=== PATIENT | female | born 1990 | race American Indian/Alaskan Native ===

== ENCOUNTER 2016-06-24 17:21 | Emergency (ER) | payer MEDICAID ==
[2016-06-24 18:02] VITALS: BP 119/88
== END 2016-06-24 19:57 | disposition left against medical advice (07) ==
LOC: ED 17:21
DX: J02.9 Acute pharyngitis, unspecified (principal); J35.1 Hypertrophy of tonsils; Z53.21 Procedure and treatment not carried out due to patient leaving prior to being seen by health care provider

== ENCOUNTER 2017-08-09 14:20 | Emergency (ER) | payer MEDICAID ==
[2017-08-09 14:33] VITALS: BP 120/78
[2017-08-09] MEDS ORDERED: DECADRON IM ONE (16:20)
[2017-08-09] MEDS ORDERED: BICILLIN L-A IM ONE (16:20)
[2017-08-09] MEDS ORDERED: TORADOL IM ONE (16:20)
--- NOTE | 2017-08-09 16:35 | Emergency Department Report ---
ED ENT HPI - General Chief complaint: Sore Throat Stated complaint: SORE THROAT, HEADACHE Time Seen by Provider: 08/09/17 16:11 Source: patient Mode of arrival: Ambulatory Limitations: No Limitations - Related Data Home Medications Medication Instructions Recorded Confirmed Last Taken Amoxicillin [Trimox] 500 mg PO Q8H 02/12/13 02/12/13 Unknown Iron,Carb/Vit C/Vit B12/Folic 02/12/13 02/12/13 Unknown [Iron 100 Plus Tablet] Methylergonovine [Methergine] 0.2 mg PO ONCE 02/12/13 02/12/13 Unknown metroNIDAZOLE [Flagyl] 500 mg PO Q8HR 02/12/13 02/12/13 Unknown Previous Rx's Medication Instructions Recorded Last Taken Type Cyclobenzaprine [Flexeril] 10 mg PO TID PRN #12 tablet 02/12/13 Unknown Rx Ibuprofen [Motrin] 800 mg PO TID PRN #14 tablet 02/12/13 Unknown Rx HYDROcodone/ACETAMINOPHEN 15 ml PO Q6HR PRN #150 solution 08/09/17 Unknown Rx [Hydrocodon-Acetamin 7.5-325/15] Allergies Allergy/AdvReac Type Severity Reaction Status Date / Time ethinyl estradiol Allergy Angioedema Verified 06/24/16 17:56 [From [facility] (28)] norgestimate Allergy Angioedema Verified 06/24/16 17:56 [From [facility] (28)] ED Dental HPI - General Chief complaint: Sore Throat Stated complaint: SORE THROAT, HEADACHE Time Seen by Provider: 08/09/17 16:11 Source: patient Mode of arrival: Ambulatory Limitations: No Limitations - Related Data Home Medications Medication Instructions Recorded Confirmed Last Taken Amoxicillin [Trimox] 500 mg PO Q8H 02/12/13 02/12/13 Unknown Iron,Carb/Vit C/Vit B12/Folic 02/12/13 02/12/13 Unknown [Iron 100 Plus Tablet] Methylergonovine [Methergine] 0.2 mg PO ONCE 02/12/13 02/12/13 Unknown metroNIDAZOLE [Flagyl] 500 mg PO Q8HR 02/12/13 02/12/13 Unknown Previous Rx's Medication Instructions Recorded Last Taken Type Cyclobenzaprine [Flexeril] 10 mg PO TID PRN #12 tablet 02/12/13 Unknown Rx Ibuprofen [Motrin] 800 mg PO TID PRN #14 tablet 02/12/13 Unknown Rx HYDROcodone/ACETAMINOPHEN 15 ml PO Q6HR PRN #150 solution 08/09/17 Unknown Rx [Hydrocodon-Acetamin 7.5-325/15] Allergies Allergy/AdvReac Type Severity Reaction Status Date / Time ethinyl estradiol Allergy Angioedema Verified 06/24/16 17:56 [From [facility] (28)] norgestimate Allergy Angioedema Verified 06/24/16 17:56 [From [facility] (28)] ED Review of Systems ROS: Stated complaint: SORE THROAT, HEADACHE Other details as noted in HPI ED Past Medical Hx - Past Medical History Previous Medical History?: Yes Additional medical history: Stomach Ulcers, 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 - Surgical History Past Surgical History?: No - Social History Smoking Status: Never Smoker Substance Use Type: Alcohol, Prescribed - Medications Home Medications: Home Medications Medication Instructions Recorded Confirmed Last Taken Type Amoxicillin [Trimox] 500 mg PO Q8H 02/12/13 02/12/13 Unknown History Cyclobenzaprine [Flexeril] 10 mg PO TID PRN #12 tablet 02/12/13 Unknown Rx Ibuprofen [Motrin] 800 mg PO TID PRN #14 tablet 02/12/13 Unknown Rx Iron,Carb/Vit C/Vit B12/Folic 02/12/13 02/12/13 Unknown History [Iron 100 Plus Tablet] Methylergonovine [Methergine] 0.2 mg PO ONCE 02/12/13 02/12/13 Unknown History metroNIDAZOLE [Flagyl] 500 mg PO Q8HR 02/12/13 02/12/13 Unknown History HYDROcodone/ACETAMINOPHEN 15 ml PO Q6HR PRN #150 solution 08/09/17 Unknown Rx [Hydrocodon-Acetamin 7.5-325/15] ED Physical Exam - General Limitations: No Limitations General appearance: alert, in no apparent distress - Head Head exam: Present: atraumatic, normocephalic - Eye Eye exam: Present: normal appearance - ENT ENT exam: Present: mucous membranes moist, other (anterior cervical lymph nodes present). Absent: normal orophraynx (pharyngeal erythema with tonsillar swelling) - Neck Neck exam: Present: normal inspection - Respiratory Respiratory exam: Present: normal lung sounds bilaterally. Absent: respiratory distress - Cardiovascular Cardiovascular Exam: Present: regular rate, normal rhythm. Absent: systolic murmur, diastolic murmur, rubs, gallop - GI/Abdominal GI/Abdominal exam: Present: soft, normal bowel sounds - Extremities Exam Extremities exam: Present: normal inspection - Back Exam Back exam: Present: normal inspection - Neurological Exam Neurological exam: Present: alert, oriented X3 - Psychiatric Psychiatric exam: Present: normal affect, normal mood - Skin Skin exam: Present: warm, dry, intact, normal color. Absent: rash ED Course Vital Signs 08/09/17 14:30 Temperature 98 F Pulse Rate 86 Respiratory 20 Rate Blood Pressure 120/78 O2 Sat by Pulse 100 Oximetry ED Medical Decision Making - Medical Decision Making Patient has had anterior cervical lymph node swelling erythema to the tonsils and swelling and possible subjective fevers at home patient will be empirically treated with Bicillin and will be discharged home with pain relief Critical care attestation.: If time is entered above; I have spent that time in minutes in the direct care of this critically ill patient, excluding procedure time. ED Disposition Clinical Impression: Pharyngitis Qualifiers: Pharyngitis/tonsillitis etiology: unspecified etiology Qualified Code(s): J02.9 - Acute pharyngitis, unspecified Disposition: DC-01 TO HOME OR SELFCARE Is pt being admited?: No Does the pt Need Aspirin: No Condition: Stable Instructions: Pharyngitis (ED) Prescriptions: HYDROcodone/ACETAMINOPHEN [Hydrocodon-Acetamin 7.5-325/15] 15 ml PO Q6HR PRN # 150 solution PRN Reason: Pain Referrals: PRIMARY CARE, [Primary Care Provider] - 3-5 Days
== END 2017-08-09 16:40 | disposition home or self-care (01) ==
LOC: ED 14:20
DX: J02.9 Acute pharyngitis, unspecified (principal); Z88.8 Allergy status to other drugs, medicaments and biological substances
CPT/HCPCS: 96372; 99282; J0561; J1100; J1885

== ENCOUNTER 2018-05-10 12:48 | Emergency (ER) | payer MEDICAID, OTHER ==
--- NOTE | 2018-05-10 13:23 | Emergency Department Report ---
Blank Doc - Documentation Documentation: 27 yo female presents mucus prod cough LMP 04/16/18, unsure about preg Exam: alert and oriented Lungs clear Plan UPT CXR MSE complete
--- NOTE | 2018-05-10 16:44 | XRay Report ---
FINAL REPORT EXAM: XR CHEST ROUTINE 2V HISTORY: cp/cough TECHNIQUE: Two view chest PA and lateral PRIORS: None. FINDINGS: Cardiac and mediastinal contours are unremarkable. No focal pulmonary infiltrate is identified. No pleural fluid collection seen. Pulmonary vasculature is unremarkable. IMPRESSION: Scoliosis of the thoracic spine convex right noted No acute cardiopulmonary findings
--- NOTE | 2018-05-10 16:52 | Emergency Department Report ---
ED General Adult HPI - General Chief complaint: Upper Respiratory Infection Stated complaint: CHEST PAIN/COUGH Time Seen by Provider: 05/10/18 15:37 Source: patient Mode of arrival: Ambulatory Limitations: No Limitations - History of Present Illness Initial comments: Patient presents to emergency department to complaint of a cough 3 weeks that has been productive in nature. There have been multiple sick contacts in the home. -: Gradual Consistency: constant Improves with: none Worsens with: none Associated Symptoms: denies other symptoms Treatments Prior to Arrival: none - Related Data Home Medications Medication Instructions Recorded Confirmed Last Taken Amoxicillin [Trimox] 500 mg PO Q8H 02/12/13 02/12/13 Unknown Iron,Carb/Vit C/Vit B12/Folic 02/12/13 02/12/13 Unknown [Iron 100 Plus Tablet] Methylergonovine [Methergine] 0.2 mg PO ONCE 02/12/13 02/12/13 Unknown metroNIDAZOLE [Flagyl] 500 mg PO Q8HR 02/12/13 02/12/13 Unknown Previous Rx's Medication Instructions Recorded Last Taken Type Cyclobenzaprine [Flexeril] 10 mg PO TID PRN #12 tablet 02/12/13 Unknown Rx Ibuprofen [Motrin] 800 mg PO TID PRN #14 tablet 02/12/13 Unknown Rx HYDROcodone/ACETAMINOPHEN 15 ml PO Q6HR PRN #150 solution 08/09/17 Unknown Rx [Hydrocodon-Acetamin 7.5-325/15] ALBUTEROL Inhaler (OR & NICU) 2 puff IH Q4HR PRN #1 inhalation 05/10/18 Unknown Rx [ProAir HFA Inhaler] Azithromycin [Zithromax Z-PHIL] 250 mg PO DAILY #6 tablet 05/10/18 Unknown Rx Benzonatate [Tessalon Perles] 100 mg PO Q8HR PRN #20 capsule 05/10/18 Unknown Rx guaiFENesin/CODEINE [Robitussin AC] 5 ml PO Q12HR PRN #180 oral.liqd 05/10/18 Unknown Rx predniSONE [Deltasone] 20 mg PO DAILY #15 tablet 05/10/18 Unknown Rx traMADol [Ultram] 50 mg PO Q6HR PRN #24 tablet 05/10/18 Unknown Rx Allergies Allergy/AdvReac Type Severity Reaction Status Date / Time ethinyl estradiol Allergy Angioedema Verified 05/10/18 13:20 [From [facility] (28)] norgestimate Allergy Angioedema Verified 05/10/18 13:20 [From [facility] (28)] ED Review of Systems ROS: Stated complaint: CHEST PAIN/COUGH Other details as noted in HPI Comment: All other systems reviewed and negative Constitutional: denies: chills, fever Eyes: denies: eye pain, eye discharge, vision change ENT: denies: ear pain, throat pain Respiratory: cough. denies: shortness of breath, wheezing Cardiovascular: denies: chest pain, palpitations Endocrine: no symptoms reported Gastrointestinal: denies: abdominal pain, nausea, diarrhea Genitourinary: denies: urgency, dysuria, discharge Musculoskeletal: denies: back pain, joint swelling, arthralgia Skin: denies: rash, lesions Neurological: denies: headache, weakness, paresthesias Psychiatric: denies: anxiety, depression Hematological/Lymphatic: denies: easy bleeding, easy bruising ED Past Medical Hx - Past Medical History Previous Medical History?: Yes Additional medical history: Stomach Ulcers, 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 - Surgical History Past Surgical History?: Yes Additional Surgical History: tonsilectomy - Social History Smoking Status: Never Smoker - Medications Home Medications: Home Medications Medication Instructions Recorded Confirmed Last Taken Type Amoxicillin [Trimox] 500 mg PO Q8H 02/12/13 02/12/13 Unknown History Cyclobenzaprine [Flexeril] 10 mg PO TID PRN #12 tablet 02/12/13 Unknown Rx Ibuprofen [Motrin] 800 mg PO TID PRN #14 tablet 02/12/13 Unknown Rx Iron,Carb/Vit C/Vit B12/Folic 02/12/13 02/12/13 Unknown History [Iron 100 Plus Tablet] Methylergonovine [Methergine] 0.2 mg PO ONCE 02/12/13 02/12/13 Unknown History metroNIDAZOLE [Flagyl] 500 mg PO Q8HR 02/12/13 02/12/13 Unknown History HYDROcodone/ACETAMINOPHEN 15 ml PO Q6HR PRN #150 solution 08/09/17 Unknown Rx [Hydrocodon-Acetamin 7.5-325/15] ALBUTEROL Inhaler (OR & NICU) 2 puff IH Q4HR PRN #1 inhalation 05/10/18 Unknown Rx [ProAir HFA Inhaler] Azithromycin [Zithromax Z-PHIL] 250 mg PO DAILY #6 tablet 05/10/18 Unknown Rx Benzonatate [Tessalon Perles] 100 mg PO Q8HR PRN #20 capsule 05/10/18 Unknown Rx guaiFENesin/CODEINE [Robitussin AC] 5 ml PO Q12HR PRN #180 oral.liqd 05/10/18 Unknown Rx predniSONE [Deltasone] 20 mg PO DAILY #15 tablet 05/10/18 Unknown Rx traMADol [Ultram] 50 mg PO Q6HR PRN #24 tablet 05/10/18 Unknown Rx ED Physical Exam - General Limitations: No Limitations General appearance: alert, in no apparent distress - Head Head exam: Present: atraumatic, normocephalic - Eye Eye exam: Present: normal appearance, PERRL, EOMI - ENT ENT exam: Present: mucous membranes moist - Neck Neck exam: Present: normal inspection - Respiratory Respiratory exam: Present: normal lung sounds bilaterally, rales. Absent: respiratory distress, wheezes - Cardiovascular Cardiovascular Exam: Present: regular rate, normal rhythm. Absent: systolic murmur, diastolic murmur, rubs, gallop - GI/Abdominal GI/Abdominal exam: Present: soft, normal bowel sounds. Absent: distended, tenderness - Extremities Exam Extremities exam: Present: normal inspection - Back Exam Back exam: Present: normal inspection - Neurological Exam Neurological exam: Present: alert, oriented X3, CN II-XII intact. Absent: motor sensory deficit - Psychiatric Psychiatric exam: Present: normal affect, normal mood - Skin Skin exam: Present: warm, dry, intact, normal color. Absent: rash ED Course Vital Signs 05/10/18 13:18 Temperature 98.1 F Pulse Rate 86 Respiratory 16 Rate Blood Pressure 137/99 O2 Sat by Pulse 98 Oximetry ED Medical Decision Making - Radiology Data Radiology results: report reviewed - Medical Decision Making Discussed plan of care with patient Critical care attestation.: If time is entered above; I have spent that time in minutes in the direct care of this critically ill patient, excluding procedure time. ED Disposition Clinical Impression: Bronchitis Disposition: DC-01 TO HOME OR SELFCARE Is pt being admited?: No Does the pt Need Aspirin: No Condition: Stable Instructions: Acute Bronchitis (ED) Prescriptions: ALBUTEROL Inhaler (OR & NICU) [ProAir HFA Inhaler] 2 puff IH Q4HR PRN #1 inhalation PRN Reason: Shortness Of Breath Azithromycin [Zithromax Z-PHIL] 250 mg PO DAILY #6 tablet Benzonatate [Tessalon Perles] 100 mg PO Q8HR PRN #20 capsule PRN Reason: Cough guaiFENesin/CODEINE [Robitussin AC] 5 ml PO Q12HR PRN #180 oral.liqd PRN Reason: Cough predniSONE [Deltasone] 20 mg PO DAILY #15 tablet traMADol [Ultram] 50 mg PO Q6HR PRN #24 tablet PRN Reason: Pain Referrals: ANA LUISA JIANG MD [Primary Care Provider] - 3-5 Days [facility] [Provider Group] - 3-5 Days [facility] [Provider Group] - 3-5 Days Forms: Work/School Release Form(ED) Time of Disposition: 16:51
[2018-05-10 17:08] VITALS: BP 136/93
== END 2018-05-10 17:21 | disposition home or self-care (01) ==
LOC: ED 12:48
DX: J40 Bronchitis, not specified as acute or chronic (principal); Z90.89 Acquired absence of other organs; Z88.8 Allergy status to other drugs, medicaments and biological substances
CPT/HCPCS: 36415; 71046; 84703; 93005; 93010; 99283

== ENCOUNTER 2018-08-27 | Emergency (ER) | payer MEDICAID ==
[2018-08-27 00:09] VITALS: BP 154/97
[2018-08-27] MEDS ORDERED: ASPIRIN PO ONE (00:10)
[2018-08-27 00:36] LABS: Basophils % (Auto) 0.7 % (0.0-1.8); Eosinophils # (Auto) 0.1 K/mm3 (0.0-0.4); Eosinophils % (Auto) 1.4 % (0.0-4.3); Hematocrit 32.5 % (30.3-42.9); Lymphocytes # (Auto) 1.5 K/mm3 (1.2-5.4); Lymphocytes % (Auto) 21.8 % (13.4-35.0); Mean Corpuscular HGB Conc 34 % (30-34); Mean Corpuscular Volume 81 fl (79-97); Monocytes # (Auto) 0.4 K/mm3 (0.0-0.8); Monocytes % (Auto) 5.2 % (0.0-7.3); Platelet Count 279 K/mm3 (140-440); Red Blood Count 4.02 M/mm3 (3.65-5.03); Red Cell Distribution Width 16.2 % (13.2-15.2)
[2018-08-27 00:55] LABS: BUN/Creatinine Ratio 15; Blood Urea Nitrogen 9 mg/dL (7-17); Calcium 9.6 mg/dL (8.4-10.2); Hemolysis Index 2
== END 2018-08-27 01:50 | disposition left against medical advice (07) ==
LOC: ED
DX: R42 Dizziness and giddiness (principal); Z53.21 Procedure and treatment not carried out due to patient leaving prior to being seen by health care provider
CPT/HCPCS: 36415; 80048; 84484; 84703; 85025; 93005; 93010

== ENCOUNTER 2018-11-14 17:48 | Emergency (ER) | payer MEDICAID ==
--- NOTE | 2018-11-14 18:23 | Emergency Department Report ---
Blank Doc - Documentation Documentation: This is a 28-year-old female that presents with pelvic pain. This initial assessment/diagnostic orders/clinical plan/treatment(s) is/are subject to change based on patient's health status, clinical progression and re- assessment by fellow clinical providers in the ED. Further treatment and workup at subsequent clinical providers discretion. Patient/guardians urged not to elope from the ED as their condition may be serious if not clinically assessed and managed. Initial orders include: 1- Patient sent to [facility] for further evaluation and treatment3 2- UA
[2018-11-14 19:20] LABS: HCG Qualitative,Urine Negative (Negative)
[2018-11-14 19:35] LABS: Bacteria,Urine 1+ /HPF (Negative); Bilirubin,Urine NEG (Negative); Blood,Urine NEG (Negative); Color,Urine Yellow (Yellow); Mucus,Urine 2+ /HPF; Protein,Urine <15 mg/dL mg/dL (Negative); Urobilinogen,Urine < 2.0 mg/dL (<2.0)
--- NOTE | 2018-11-14 23:19 | Emergency Department Report ---
ED Abdominal Pain HPI - General Chief Complaint: Abdominal Pain Stated Complaint: LT FOOT/ABD PAIN Time Seen by Provider: 11/14/18 18:21 Source: patient Mode of arrival: Ambulatory Limitations: No Limitations - History of Present Illness Initial Comments: Mrs. Clifford is a 28-year-old female who presents with lower bilateral abdominal pain. Denies dysuria. Denies vaginal discharge. Mild abdominal pain. Denies fever. Denies vomiting. Mother was diagnosed uterine fibroids. No previous history of ovarian cyst. Had normal Pap smear last month. In September she was diagnosed with left foot fracture that appears to the hospital. Referred to ankle and employee placement specialist. She desires medication for foot pain due to fracture. She is able to ambulate with mild discomfort. MD Complaint: abdominal pain -: Gradual, days(s) (1) Location: LLQ, RLQ Severity: mild Quality: aching Consistency: constant Improves With: nothing Worsens With: movement Associated Symptoms: denies other symptoms - Related Data Home Medications Medication Instructions Recorded Confirmed Last Taken Amoxicillin [Trimox] 500 mg PO Q8H 02/12/13 02/12/13 Unknown Iron,Carb/Vit C/Vit B12/Folic 02/12/13 02/12/13 Unknown [Iron 100 Plus Tablet] Methylergonovine [Methergine] 0.2 mg PO ONCE 02/12/13 02/12/13 Unknown metroNIDAZOLE [Flagyl] 500 mg PO Q8HR 02/12/13 02/12/13 Unknown Previous Rx's Medication Instructions Recorded Last Taken Type Cyclobenzaprine [Flexeril] 10 mg PO TID PRN #12 tablet 02/12/13 Unknown Rx Ibuprofen [Motrin] 800 mg PO TID PRN #14 tablet 02/12/13 Unknown Rx HYDROcodone/ACETAMINOPHEN 15 ml PO Q6HR PRN #150 solution 08/09/17 Unknown Rx [Hydrocodon-Acetamin 7.5-325/15] ALBUTEROL Inhaler (OR & NICU) 2 puff IH Q4HR PRN #1 inhalation 05/10/18 Unknown Rx [ProAir HFA Inhaler] Azithromycin [Zithromax Z-PHIL] 250 mg PO DAILY #6 tablet 05/10/18 Unknown Rx Benzonatate [Tessalon Perles] 100 mg PO Q8HR PRN #20 capsule 05/10/18 Unknown Rx guaiFENesin/CODEINE [Robitussin AC] 5 ml PO Q12HR PRN #180 oral.liqd 05/10/18 Unknown Rx predniSONE [Deltasone] 20 mg PO DAILY #15 tablet 05/10/18 Unknown Rx traMADol [Ultram] 50 mg PO Q6HR PRN #24 tablet 05/10/18 Unknown Rx HYDROcodone/APAP 5-325 [[place] 1 each PO Q6HR PRN #10 tablet 11/14/18 Unknown Rx 5/325] Ibuprofen [Motrin 800 MG tab] 800 mg PO Q8HR PRN #10 tablet 11/14/18 Unknown Rx Allergies Allergy/AdvReac Type Severity Reaction Status Date / Time ethinyl estradiol Allergy Angioedema Verified 05/10/18 13:20 [From [facility] (28)] norgestimate Allergy Angioedema Verified 05/10/18 13:20 [From [facility] (28)] ED Review of Systems ROS: Stated complaint: LT FOOT/ABD PAIN Other details as noted in HPI Comment: All other systems reviewed and negative Constitutional: denies: fever, malaise Respiratory: denies: cough Gastrointestinal: abdominal pain. denies: nausea, vomiting, diarrhea ED Past Medical Hx - Past Medical History Previous Medical History?: Yes Hx Hypertension: Yes Additional medical history: Stomach Ulcers, 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 - Surgical History Past Surgical History?: Yes Additional Surgical History: tonsilectomy - Social History Smoking Status: Never Smoker Substance Use Type: Alcohol - Medications Home Medications: Home Medications Medication Instructions Recorded Confirmed Last Taken Type Amoxicillin [Trimox] 500 mg PO Q8H 02/12/13 02/12/13 Unknown History Cyclobenzaprine [Flexeril] 10 mg PO TID PRN #12 tablet 02/12/13 Unknown Rx Ibuprofen [Motrin] 800 mg PO TID PRN #14 tablet 02/12/13 Unknown Rx Iron,Carb/Vit C/Vit B12/Folic 02/12/13 02/12/13 Unknown History [Iron 100 Plus Tablet] Methylergonovine [Methergine] 0.2 mg PO ONCE 02/12/13 02/12/13 Unknown History metroNIDAZOLE [Flagyl] 500 mg PO Q8HR 02/12/13 02/12/13 Unknown History HYDROcodone/ACETAMINOPHEN 15 ml PO Q6HR PRN #150 solution 08/09/17 Unknown Rx [Hydrocodon-Acetamin 7.5-325/15] ALBUTEROL Inhaler (OR & NICU) 2 puff IH Q4HR PRN #1 inhalation 05/10/18 Unknown Rx [ProAir HFA Inhaler] Azithromycin [Zithromax Z-PHIL] 250 mg PO DAILY #6 tablet 05/10/18 Unknown Rx Benzonatate [Tessalon Perles] 100 mg PO Q8HR PRN #20 capsule 05/10/18 Unknown Rx guaiFENesin/CODEINE [Robitussin AC] 5 ml PO Q12HR PRN #180 oral.liqd 05/10/18 Unknown Rx predniSONE [Deltasone] 20 mg PO DAILY #15 tablet 05/10/18 Unknown Rx traMADol [Ultram] 50 mg PO Q6HR PRN #24 tablet 05/10/18 Unknown Rx HYDROcodone/APAP 5-325 [[place] 1 each PO Q6HR PRN #10 tablet 11/14/18 Unknown Rx 5/325] Ibuprofen [Motrin 800 MG tab] 800 mg PO Q8HR PRN #10 tablet 11/14/18 Unknown Rx ED Physical Exam - General Limitations: No Limitations General appearance: alert, in no apparent distress - Head Head exam: Present: atraumatic, normocephalic - Eye Eye exam: Present: normal appearance - ENT ENT exam: Present: mucous membranes moist - Neck Neck exam: Present: normal inspection, full ROM - Respiratory Respiratory exam: Present: normal lung sounds bilaterally. Absent: respiratory distress, wheezes, rales, rhonchi - Cardiovascular Cardiovascular Exam: Present: regular rate, normal rhythm, normal heart sounds. Absent: systolic murmur, diastolic murmur, rubs, gallop - GI/Abdominal GI/Abdominal exam: Present: soft, normal bowel sounds. Absent: distended, tenderness, guarding, rebound - Extremities Exam Extremities exam: Present: normal inspection, other (left foot without deformity positive pedal pulse) - Neurological Exam Neurological exam: Present: alert, oriented X3 - Psychiatric Psychiatric exam: Present: normal affect, normal mood - Skin Skin exam: Present: warm, dry, intact, normal color. Absent: rash ED Course Vital Signs 11/14/18 18:22 Temperature 98.4 F Pulse Rate 78 Respiratory 18 Rate Blood Pressure 120/81 O2 Sat by Pulse 99 Oximetry ED Medical Decision Making - Lab Data Laboratory Results - last 24 hr 08/12/19 18:43 Urine Color Yellow Urine Turbidity Slightly-cloudy Urine pH 6.0 Ur Specific [place] 1.026 Urine Protein <15 mg/dl Urine Glucose (UA) Neg Urine Ketones Neg Urine Blood Neg Urine Nitrite Neg Ur Reducing Substances Not Reportable Urine Bilirubin Neg Urine Ictotest Not Reportable Urine Urobilinogen < 2.0 Ur Leukocyte Esterase Neg Urine WBC (Auto) 2.0 Urine RBC (Auto) 2.0 U Epithel Cells (Auto) 23.0 H Urine Bacteria (Auto) 1+ Urine Mucus 2+ Urine HCG, Qual Negative - Medical Decision Making 1. Abdominal pain without signs of peritonitis. Do not suspect appendicitis. Suspect ovarian torsion. Urine test is negative. Differential diagnosis includes irritable bowel syndrome, uterine fibroids, ovarian cysts. No indication of PID from medical history. Referred to personal [employer] 2. Left foot injury: Prescribed [place] ibuprofen referred to ankle and employee placement specialist on-call. Urinalysis contaminated I do not suspect urinary tract infection. Critical care attestation.: If time is entered above; I have spent that time in minutes in the direct care of this critically ill patient, excluding procedure time. ED Disposition Clinical Impression: Abdominal pain, Injury of left foot Disposition: DC-01 TO HOME OR SELFCARE Is pt being admited?: No Does the pt Need Aspirin: No Condition: Stable Instructions: Abdominal Pain (ED) Prescriptions: Ibuprofen [Motrin 800 MG tab] 800 mg PO Q8HR PRN #10 tablet PRN Reason: Pain , Severe (7-10) HYDROcodone/APAP 5-325 [[place] 5/325] 1 each PO Q6HR PRN #10 tablet PRN Reason: Pain Referrals: DOREEN SALES DPM [Staff Physician] - 3-5 Days Forms: Work/School Release Form(ED)
[2018-11-14 23:21] VITALS: BP 115/65
== END 2018-11-14 23:33 | disposition home or self-care (01) ==
LOC: ED 17:48
DX: S92.902A Unspecified fracture of left foot, initial encounter for closed fracture (principal); R10.31 Right lower quadrant pain; R10.32 Left lower quadrant pain; I10 Essential (primary) hypertension; Z90.89 Acquired absence of other organs; Z88.8 Allergy status to other drugs, medicaments and biological substances; Z79.899 Other long term (current) drug therapy; W22.8XXA Striking against or struck by other objects, initial encounter; Y93.89 Activity, other specified; Y92.89 Other specified places as the place of occurrence of the external cause; Y99.8 Other external cause status
CPT/HCPCS: 81001; 81025; 99283

== ENCOUNTER 2020-06-08 06:19 | Emergency (ER) | payer MEDICAID ==
[2020-06-08 07:32] LABS: Bacteria,Urine 1+ /HPF (Negative); Bilirubin,Urine NEG (Negative); Blood,Urine NEG (Negative); Color,Urine Yellow (Yellow); Protein,Urine <15 mg/dL mg/dL (Negative); Urobilinogen,Urine < 2.0 mg/dL (<2.0)
[2020-06-08 07:39] LABS: Basophils % (Auto) 0.4 % (0.0-1.8); Eosinophils # (Auto) 0.2 K/mm3 (0.0-0.4); Eosinophils % (Auto) 2.1 % (0.0-4.3); Hematocrit 33.1 % (30.3-42.9); Hemoglobin 10.9 gm/dl (10.1-14.3); Lymphocytes # (Auto) 1.7 K/mm3 (1.2-5.4); Lymphocytes % (Auto) 23.2 % (13.4-35.0); Mean Corpuscular HGB Conc 33 % (30-34); Mean Corpuscular Volume 82 fl (79-97); Monocytes # (Auto) 0.4 K/mm3 (0.0-0.8); Monocytes % (Auto) 5.1 % (0.0-7.3); Platelet Count 325 K/mm3 (140-440); Red Blood Count 4.05 M/mm3 (3.65-5.03); Red Cell Distribution Width 16.8 % (13.2-15.2)
[2020-06-08 07:41] LABS: Alanine Aminotransferase 11 units/L (7-56); Albumin 4.2 g/dL (3.9-5); Blood Urea Nitrogen 12 mg/dL (7-17); Calcium 9.5 mg/dL (8.4-10.2); Hemolysis Index 1
[2020-06-08 07:42] LABS: BUN/Creatinine Ratio 20
[2020-06-08 09:29] VITALS: BP 142/96
--- NOTE | 2020-06-08 09:32 | Emergency Department Report ---
ED N/V/D HPI - General Chief complaint: Abdominal Pain Stated complaint: VOMITTING Time Seen by Provider: 06/08/20 09:29 Source: patient Mode of arrival: Ambulatory Limitations: No Limitations - History of Present Illness Initial comments: 29 yr old female with pmhx of anemia, and HTN presents to ED with c/o vomiting and abd pain. Patient states her symptoms started earlier this week. She states she has also been having very loose stool. She states her daughter was sick recently with similar symptoms. She denies any fever, chills, UTI symptoms, abnl vag symptoms, hematemesis, hematochezia or melena. She states her last MC was 05/28/20. MD complaint: nausea, vomiting, diarrhea, abdominal pain -: Gradual, week(s) (1) - Related Data Home Medications Medication Instructions Recorded Confirmed Last Taken Iron,Carb/Vit C/Vit B12/Folic 02/12/13 02/12/13 Unknown [Iron 100 Plus Tablet] Methylergonovine [Methergine] 0.2 mg PO ONCE 02/12/13 02/12/13 Unknown Previous Rx's Medication Instructions Recorded Last Taken Type Dicyclomine [Bentyl] 10 mg PO TID PRN #30 capsule 06/08/20 Unknown Rx Ondansetron [Zofran Odt] 4 mg PO Q8HR PRN #15 tab.rapdis 06/08/20 Unknown Rx Allergies Allergy/AdvReac Type Severity Reaction Status Date / Time ethinyl estradiol Allergy Angioedema Verified 05/10/18 13:20 [From Sprintec (28)] norgestimate Allergy Angioedema Verified 05/10/18 13:20 [From Sprintec (28)] ED Review of Systems ROS: Stated complaint: VOMITTING Other details as noted in HPI Comment: All other systems reviewed and negative Constitutional: denies: chills, fever Respiratory: denies: cough, shortness of breath, wheezing Cardiovascular: denies: chest pain, palpitations Gastrointestinal: abdominal pain, nausea, vomiting, diarrhea Genitourinary: denies: urgency, dysuria, discharge Musculoskeletal: denies: back pain, joint swelling, arthralgia Skin: denies: rash, lesions Neurological: denies: headache, weakness, paresthesias Psychiatric: denies: anxiety, depression ED Past Medical Hx - Past Medical History Previous Medical History?: Yes Hx Hypertension: Yes Additional medical history: Stomach Ulcers, 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 - Surgical History Past Surgical History?: Yes Additional Surgical History: tonsilectomy - Social History Smoking Status: Never Smoker Substance Use Type: None - Medications Home Medications: Home Medications Medication Instructions Recorded Confirmed Last Taken Type Iron,Carb/Vit C/Vit B12/Folic 02/12/13 02/12/13 Unknown History [Iron 100 Plus Tablet] Methylergonovine [Methergine] 0.2 mg PO ONCE 02/12/13 02/12/13 Unknown History Dicyclomine [Bentyl] 10 mg PO TID PRN #30 capsule 06/08/20 Unknown Rx Ondansetron [Zofran Odt] 4 mg PO Q8HR PRN #15 tab.rapdis 06/08/20 Unknown Rx ED Physical Exam - General Limitations: No Limitations General appearance: alert, in no apparent distress - Head Head exam: Present: atraumatic, normocephalic, normal inspection - Eye Eye exam: Present: normal appearance - Neck Neck exam: Present: normal inspection, full ROM - Respiratory Respiratory exam: Absent: respiratory distress - Cardiovascular Cardiovascular Exam: Present: regular rate - GI/Abdominal GI/Abdominal exam: Present: soft. Absent: distended, tenderness, guarding, rebound - Back Exam Back exam: Present: normal inspection - Neurological Exam Neurological exam: Present: alert, oriented X3, CN II-XII intact, normal gait - Psychiatric Psychiatric exam: Present: normal affect, normal mood - Skin Skin exam: Present: intact ED Course Vital Signs 06/08/20 06/08/20 06:45 09:29 Temperature 98.4 F Pulse Rate 80 84 Respiratory 17 20 Rate Blood Pressure 141/100 Blood Pressure 142/96 [Right] O2 Sat by Pulse 100 100 Oximetry ED Medical Decision Making - Lab Data Result diagrams: 06/08/20 07:08 06/08/20 07:08 - Medical Decision Making Patient arrived to ED about 1hr prior to onset of my shift at 7:00. Her chart was placed in back to be seen. Once a room was available the nursing staff did try to find her to put her in the room but patient was no where to be found. Eventually patient came back to ED. 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 Patient labs reviewed by me. Work-up today unremarkable. She has a soft nontender abdomen. States that she has not had any episodes of vomiting since she arrived in the ER. She has been observed eating and drinking in the ER. Repeat vital signs stable. She is not toxic, or ill-appearing and is not in any acute distress. Suspect her symptoms may related to a stomach virus since her daughter recently had similar symptoms. No indication for any further work-up or imaging at this time. Discussed lab results as well as suspected diagnosis with patient. Discussed treatment plan with patient. She expressed under standing of instructions and agree with plan. Patient was stable at time of discharge. Critical care attestation.: If time is entered above; I have spent that time in minutes in the direct care of this critically ill patient, excluding procedure time. ED Disposition Clinical Impression: Gastroenteritis, Abdominal pain Disposition: - TO HOME OR SELFCARE Is pt being admited?: No Does the pt Need Aspirin: No Condition: Stable Instructions: Viral Gastroenteritis, Adult, [id number], Abdominal Pain, Adult, [id number], Abdominal Pain (ED) Additional Instructions: Take the zofran and bentyl as prescribed. I recommend doing bland diet for the next 12hrs. Continue to drink fluids. Return to ED if symptoms changes or worsens. Follow up with PCP. Prescriptions: Dicyclomine [Bentyl] 10 mg PO TID PRN #30 capsule PRN Reason: Abdominal Cramps Ondansetron [Zofran Odt] 4 mg PO Q8HR PRN #15 tab.rapdis PRN Reason: Vomiting Referrals: RASHAAD KNOTT MD [Primary Care Provider] - 3-5 Days Forms: Work/School Release Form(ED) Time of Disposition: 09:34
== END 2020-06-08 09:39 | disposition home or self-care (01) ==
LOC: ED 06:19
DX: K52.9 Noninfective gastroenteritis and colitis, unspecified (principal); R10.9 Unspecified abdominal pain; I10 Essential (primary) hypertension; Z90.89 Acquired absence of other organs; Z79.899 Other long term (current) drug therapy; Z88.8 Allergy status to other drugs, medicaments and biological substances
CPT/HCPCS: 36415; 80053; 81001; 83690; 84703; 85025

== ENCOUNTER 2020-08-18 12:50 | Emergency (ER) | payer MEDICAID ==
[2020-08-18 13:32] VITALS: BP 113/73
[2020-08-18 14:54] LABS: Hematocrit 33.4 % (30.3-42.9); Hemoglobin 10.9 gm/dl (10.1-14.3); Mean Corpuscular HGB Conc 33 % (30-34); Mean Corpuscular Volume 82 fl (79-97); Red Blood Count 4.07 M/mm3 (3.65-5.03); Red Cell Distribution Width 16.2 % (13.2-15.2)
[2020-08-18 15:01] LABS: Bilirubin,Urine NEG (Negative); Blood,Urine NEG (Negative); Color,Urine Yellow (Yellow); Mucus,Urine FEW /HPF; Protein,Urine <15 mg/dL mg/dL (Negative); Urobilinogen,Urine < 2.0 mg/dL (<2.0)
[2020-08-18 15:02] LABS: Platelet Count 297 K/mm3 (140-440)
[2020-08-18 15:07] LABS: Alanine Aminotransferase 15 units/L (7-56); Albumin 4.3 g/dL (3.9-5); Blood Urea Nitrogen 8 mg/dL (7-17); Calcium 9.5 mg/dL (8.4-10.2); Hemolysis Index 52
[2020-08-18 15:09] LABS: BUN/Creatinine Ratio 16
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
[2020-08-18 18:08] LABS: Total Cells Counted 100
[2020-08-18 18:09] LABS: RBC Morphology Normal
== END 2020-08-18 18:05 | disposition home or self-care (01) ==
LOC: ED 12:50
DX: O9A.211 Injury, poisoning and certain other consequences of external causes complicating pregnancy, first trimester (principal); M54.2 Cervicalgia; M54.5 Low back pain; R10.30 Lower abdominal pain, unspecified; I10 Essential (primary) hypertension; Z3A.08 8 weeks gestation of pregnancy; Z90.89 Acquired absence of other organs; Z79.899 Other long term (current) drug therapy; Z88.8 Allergy status to other drugs, medicaments and biological substances; V49.49XA Driver injured in collision with other motor vehicles in traffic accident, initial encounter; Y93.89 Activity, other specified; Y92.410 Unspecified street and highway as the place of occurrence of the external cause; Y99.8 Other external cause status
CPT/HCPCS: 36415; 76801; 80053; 81001; 84702; 85007; 85025; 86900; 86901; 87086

== ENCOUNTER 2021-02-06 12:06 | Emergency (ER) | payer MEDICAID ==
--- NOTE | 2021-02-06 14:15 | Emergency Department Report ---
ED Psych HPI - General Chief Complaint: Medical Clearance Stated Complaint: COMING FROM PSYCHIATRIST Source: family Mode of arrival: Ambulatory - History of Present Illness Initial Comments: Chief complaint: Sent from psychiatrist office for mental health assessment HPI: This is a 30-year-old female with history of anemia, hypertension, bipolar disorder who presents with from psychiatrist office for evaluation. Mother informed to health front facer that patient has had erratic behavior. She appeared emotional. Patient denies suicidal homicidal ideation. She denies hallucinations. She states that she wants a Covid vaccine booster. She states that she is motivated to live because of her children. Mental health front facer confirmed that she was being sent for voluntary evaluation. Patient stated that her medication dose was increased today. For the last several days she has not taken her medication Latuda. Complaint: other (Emotional, erratic behavior) -: days(s) (Several days) History of same: Yes Quality: constant Improves With: none Worsens With: none Associated Symptoms: denies other symptoms Treatments Prior to Arrival: none - Related Data Home Medications Medication Instructions Recorded Confirmed Last Taken Iron,Carb/Vit C/Vit B12/Folic 02/12/13 02/12/13 Unknown [Iron 100 Plus Tablet] Methylergonovine [Methergine] 0.2 mg PO ONCE 02/12/13 02/12/13 Unknown Previous Rx's Medication Instructions Recorded Last Taken Type Dicyclomine [Bentyl] 10 mg PO TID PRN #30 capsule 06/08/20 Unknown Rx Ondansetron [Zofran Odt] 4 mg PO Q8HR PRN #15 tab.rapdis 06/08/20 Unknown Rx Allergies Allergy/AdvReac Type Severity Reaction Status Date / Time ethinyl estradiol Allergy Angioedema Verified 05/10/18 13:20 [From [facility] (28)] latex Allergy Hives Verified 08/18/20 13:28 [email or web address] Allergy Angioedema Verified 05/10/18 13:20 [From [facility] (28)] ED Review of Systems ROS: Stated complaint: COMING FROM PSYCHIATRIST Other details as noted in HPI Comment: All other systems reviewed and negative Constitutional: denies: chills, fever, malaise Respiratory: denies: cough, shortness of breath Cardiovascular: denies: chest pain Gastrointestinal: denies: abdominal pain, nausea, vomiting ED Past Medical Hx - Past Medical History Previous Medical History?: Yes Hx Hypertension: Yes Additional medical history: Stomach Ulcers, 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 - Surgical History Past Surgical History?: Yes Additional Surgical History: tonsilectomy - Social History Smoking Status: Never Smoker Substance Use Type: None - Medications Home Medications: Home Medications Medication Instructions Recorded Confirmed Last Taken Type Iron,Carb/Vit C/Vit B12/Folic 02/12/13 02/12/13 Unknown History [Iron 100 Plus Tablet] Methylergonovine [Methergine] 0.2 mg PO ONCE 02/12/13 02/12/13 Unknown History Dicyclomine [Bentyl] 10 mg PO TID PRN #30 capsule 06/08/20 Unknown Rx Ondansetron [Zofran Odt] 4 mg PO Q8HR PRN #15 tab.rapdis 06/08/20 Unknown Rx ED Physical Exam - General Limitations: Other General appearance: alert, in no apparent distress, other (Cooperative) - Head Head exam: Present: atraumatic, normocephalic - Eye Eye exam: Present: normal appearance - ENT ENT exam: Present: mucous membranes moist - Neck Neck exam: Present: normal inspection, full ROM - Respiratory Respiratory exam: Present: normal lung sounds bilaterally. Absent: respiratory distress - Cardiovascular Cardiovascular Exam: Present: regular rate, normal rhythm. Absent: systolic murmur, diastolic murmur, rubs, gallop - GI/Abdominal GI/Abdominal exam: Present: soft, normal bowel sounds - Extremities Exam Extremities exam: Present: normal inspection - Back Exam Back exam: Present: normal inspection - Neurological Exam Neurological exam: Present: alert, oriented X3 - Psychiatric Psychiatric exam: Present: flat affect, other (Odd affect but cooperative denies suicidal homicidal action) - Skin Skin exam: Present: warm, dry, intact, normal color. Absent: rash ED Course Vital Signs 02/06/21 12:11 Pulse Rate 111 H Respiratory 18 Rate Blood Pressure 163/116 [Right] O2 Sat by Pulse 100 Oximetry ED Medical Decision Making - Medical Decision Making Ms. Burt is a 30-year-old female who presents from psychiatrist office for voluntary evaluation. Patient does not appear to be a harm to herself or others. After speaking with mental health front facer she left the emergency department. I do not suspect the she will be at harm. She actually drove herself to the psychiatrist office. Mother is here in emergency department confirmed mental health front facer. Patient eloped without further treatment. Critical care attestation.: If time is entered above; I have spent that time in minutes in the direct care of this critically ill patient, excluding procedure time. ED Disposition Clinical Impression: Bipolar disorder Disposition: 07 LEFT AWOL/ELOPED Is pt being admited?: No Does the pt Need Aspirin: No Condition: Stable
[2021-02-06 14:43] VITALS: BP 150/95
== END 2021-02-06 14:20 | disposition home or self-care (01) ==
LOC: ED 12:06
DX: F31.9 Bipolar disorder, unspecified (principal); I10 Essential (primary) hypertension; Z88.8 Allergy status to other drugs, medicaments and biological substances; Z91.040 Latex allergy status; Z87.892 Personal history of anaphylaxis
CPT/HCPCS: 99283

== ENCOUNTER 2021-09-23 15:18 | Emergency (ER) | payer MEDICAID ==
[2021-09-23] MEDS ORDERED: MORPHINE 4 MG/1 ML INJ IV ONE (17:41)
[2021-09-23] MEDS ORDERED: ONDANSETRON 4 MG/2 ML INJ IV ONE (17:41)
[2021-09-23 17:52] LABS: Basophils # (Auto) 0.1 K/mm3 (0.0-0.1); Eosinophils # (Auto) 0.2 K/mm3 (0.0-0.4); Eosinophils % (Auto) 2.1 % (0.0-4.3); Hematocrit 33.4 % (30.3-42.9); Hemoglobin 11.1 gm/dl (10.1-14.3); Lymphocytes # (Auto) 1.7 K/mm3 (1.2-5.4); Lymphocytes % (Auto) 20.3 % (13.4-35.0); Mean Corpuscular HGB Conc 33 % (30-34); Mean Corpuscular Volume 81 fl (79-97); Monocytes # (Auto) 0.5 K/mm3 (0.0-0.8); Monocytes % (Auto) 6.5 % (0.0-7.3); Platelet Count 268 K/mm3 (140-440); Red Blood Count 4.11 M/mm3 (3.65-5.03); Red Cell Distribution Width 18.2 % (13.2-15.2)
[2021-09-23 18:22] VITALS: BP 123/87
[2021-09-23 18:25] LABS: Bilirubin,Urine NEG (Negative); Blood,Urine LG (Negative); Color,Urine Yellow (Yellow); Urobilinogen,Urine < 2.0 mg/dL (<2.0)
[2021-09-23 18:32] LABS: Mucus,Urine 1+ /HPF
[2021-09-23 18:34] LABS: Alanine Aminotransferase 18 units/L (7-56); Albumin 4.5 g/dL (3.9-5); Blood Urea Nitrogen 11 mg/dL (7-17); Calcium 9.5 mg/dL (8.4-10.2); Hemolysis Index 46
[2021-09-23 18:34] LABS: HCG Qualitative,Urine Negative (Negative)
[2021-09-23 18:35] LABS: BUN/Creatinine Ratio 18
[2021-09-23 18:38] LABS: WBC,Urine > 182.0 /HPF (0.0-6.0)
[2021-09-23] MEDS ORDERED: cefTRIAXone/NS 1 GM/50 ML 1 GM/50 ML BAG IV ONE (18:48)
--- NOTE | 2021-09-23 20:17 | Cat Scan Report ---
CT abdomen pelvis w con INDICATION / CLINICAL INFORMATION: LLQ pain. TECHNIQUE: Axial CT imaging of abdomen and pelvis was obtained with 100 mL Omnipaque 300 IV contrast. Coronal an d sagittal reformatted imaging obtained and reviewed. All CT scans at this location are performed us ing CT dose reduction for ALARA by means of automated exposure control. COMPARISON: None available. FINDINGS: CT abdomen with IV contrast demonstrates normal appearance of the liver, spleen, pancreas, kidneys, a nd adrenal glands. Small angiomyolipoma is present in the right kidney, measuring 1.5 cm. Abdominal a krystian is unremarkable. Gallbladder is unremarkable. No biliary dilatation. CT pelvis with contrast is unremarkable. No pelvic mass, free fluid, or focal inflammatory change not ed. Normal appendix is present. GI tract is normal in appearance. See no etiology to account for the patient's complaint of left lower quadrant pain. No diverticulosis or diverticulitis is present. Visualized lung bases are clear. No acute osseous abnormality noted. IMPRESSION: 1. No acute finding within the abdomen or pelvis. Specifically no finding is identified to account fo r the patient's complaint of left lower quadrant pain. 2. 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 Signer Name: Alissa Obrien MD Signed: 09/23/2021 8:12 PM Workstation Name: [id number]
[2021-09-23] MEDS ORDERED: diphenhydrAMINE 50 MG/ML VIAL IV ONE (20:46)
[2021-09-23] MEDS ORDERED: dexAMETHasone 20 MG/5 ML VIAL IV ONE (20:46)
[2021-09-23] MEDS ORDERED: KETOROLAC 30 MG/1 ML INJ IV ONE (20:46)
--- NOTE | 2021-09-23 21:10 | Emergency Department Report ---
ED Abdominal Pain HPI - General Chief Complaint: Abdominal Pain Stated Complaint: LT SIDE PAIN Source: patient Mode of arrival: Ambulatory Limitations: No Limitations - History of Present Illness Initial Comments: Patient is a 31-year-old -[place] female with no past medical history presents to the ED with complaint of acute onset persistent left flank pain that radiates to the left lower quadrant area with nausea for the last 8 hours. Patient states that the pain has been constant and persistent, worse with any movement. Patient states that the pain is sharp and constant and persistent. Patient denies dizziness, syncope, fever, chills, vaginal bleeding, vaginal discharge, vomiting, cough, traumatic injury, heavy lifting, fall, constipation, diarrhea, change in vision or back pain. MD Complaint: abdominal pain (left flank, LLQ), flank pain (left ) -: Sudden, days(s) (2) Location: suprapubic, L flank Radiation: L flank Migration to: RLQ, L flank Severity scale (0 -10): 10 Quality: aching, sharp Consistency: constant Improves With: nothing Worsens With: movement Associated Symptoms: denies other symptoms, nausea. denies: vomiting, diarrhea, fever, constipation, dysuria, hematemesis, hematochezia, melena, hematuria - Related Data Home Medications Medication Instructions Recorded Confirmed Last Taken Iron,Carb/Vit C/Vit B12/Folic 02/12/13 02/12/13 Unknown [Iron 100 Plus Tablet] Methylergonovine [Methergine] 0.2 mg PO ONCE 02/12/13 02/12/13 Unknown Previous Rx's Medication Instructions Recorded Last Taken Type Dicyclomine [Bentyl] 10 mg PO TID PRN #30 capsule 06/08/20 Unknown Rx Ondansetron [Zofran Odt] 4 mg PO Q8HR PRN #15 tab.rapdis 06/08/20 Unknown Rx Nitrofurantoin [place]/M-Cryst 100 mg PO Q12HR #20 capsule 07/12/21 Unknown Rx [Macrobid CAP] Phenazopyridine [Pyridium] 200 mg PO TID #10 tab 07/12/21 Unknown Rx Ibuprofen [Motrin] 800 mg PO Q8HR PRN #30 tablet 09/23/21 Unknown Rx Ondansetron [Zofran Odt] 4 mg PO Q8HR PRN #20 tab.rapdis 09/23/21 Unknown Rx Sulfamethoxazole/Trimethoprim 1 each PO BID #20 tab 09/23/21 Unknown Rx [Bactrim DS TAB] diphenhydrAMINE [Benadryl CAP] 25 mg PO Q6HR PRN #30 capsule 09/23/21 Unknown Rx methylPREDNISolone [Medrol 4MG 4 mg PO DAILY #21 tab 09/23/21 Unknown Rx DOSEPAK (21 tabs)] Allergies Allergy/AdvReac Type Severity Reaction Status Date / Time ethinyl estradiol Allergy Angioedema Verified 05/10/18 13:20 [From [facility] (28)] latex Allergy Hives Verified 08/18/20 13:28 [email or web address] Allergy Angioedema Verified 05/10/18 13:20 [From [facility] (28)] ED Review of Systems ROS: Stated complaint: LT SIDE PAIN Other details as noted in HPI Constitutional: denies: chills, fever Eyes: denies: eye pain, eye discharge, vision change ENT: denies: ear pain, throat pain Respiratory: denies: cough, shortness of breath, wheezing Cardiovascular: denies: chest pain, palpitations Endocrine: no symptoms reported Gastrointestinal: abdominal pain (Left flank and left lower quadrant pain), nausea. denies: diarrhea Genitourinary: denies: urgency, dysuria, discharge Musculoskeletal: denies: back pain, joint swelling, arthralgia Skin: denies: rash, lesions Neurological: denies: headache, weakness, paresthesias Psychiatric: denies: anxiety, depression Hematological/Lymphatic: denies: easy bleeding, easy bruising ED Past Medical Hx - Past Medical History Previous Medical History?: Yes Hx Hypertension: Yes Additional medical history: Stomach Ulcers, 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 - Surgical History Additional Surgical History: tonsilectomy - Social History Smoking Status: Never Smoker - Medications Home Medications: Home Medications Medication Instructions Recorded Confirmed Last Taken Type Iron,Carb/Vit C/Vit B12/Folic 02/12/13 02/12/13 Unknown History [Iron 100 Plus Tablet] Methylergonovine [Methergine] 0.2 mg PO ONCE 02/12/13 02/12/13 Unknown History Dicyclomine [Bentyl] 10 mg PO TID PRN #30 capsule 06/08/20 Unknown Rx Ondansetron [Zofran Odt] 4 mg PO Q8HR PRN #15 tab.rapdis 06/08/20 Unknown Rx Nitrofurantoin [place]/M-Cryst 100 mg PO Q12HR #20 capsule 07/12/21 Unknown Rx [Macrobid CAP] Phenazopyridine [Pyridium] 200 mg PO TID #10 tab 07/12/21 Unknown Rx Ibuprofen [Motrin] 800 mg PO Q8HR PRN #30 tablet 09/23/21 Unknown Rx Ondansetron [Zofran Odt] 4 mg PO Q8HR PRN #20 tab.rapdis 09/23/21 Unknown Rx Sulfamethoxazole/Trimethoprim 1 each PO BID #20 tab 09/23/21 Unknown Rx [Bactrim DS TAB] diphenhydrAMINE [Benadryl CAP] 25 mg PO Q6HR PRN #30 capsule 09/23/21 Unknown Rx methylPREDNISolone [Medrol 4MG 4 mg PO DAILY #21 tab 09/23/21 Unknown Rx DOSEPAK (21 tabs)] ED Physical Exam - General Limitations: No Limitations General appearance: alert, in no apparent distress - Head Head exam: Present: atraumatic, normocephalic - Eye Eye exam: Present: normal appearance, PERRL, EOMI Pupils: Present: normal accommodation - ENT ENT exam: Present: normal exam, normal orophraynx, mucous membranes moist, TM's normal bilaterally, normal external ear exam - Neck Neck exam: Present: normal inspection, full ROM. Absent: tenderness - Respiratory Respiratory exam: Present: normal lung sounds bilaterally. Absent: respiratory distress, wheezes, rales, rhonchi, chest wall tenderness, accessory muscle use, decreased breath sounds, prolonged expiratory - Cardiovascular Cardiovascular Exam: Present: regular rate, normal rhythm, normal heart sounds. Absent: systolic murmur, diastolic murmur, rubs, gallop - GI/Abdominal GI/Abdominal exam: Present: soft, tenderness (Palpable left flank and left lower quadrant tenderness), normal bowel sounds. Absent: guarding, rebound, hyperactive bowel sounds, hypoactive bowel sounds, organomegaly - Extremities Exam Extremities exam: Present: normal inspection, full ROM, normal capillary refill. Absent: tenderness - Back Exam Back exam: Present: normal inspection, full ROM, tenderness (Palpable lumbosacral paraspinal musculoskeletal tenderness; left CVA tenderness), CVA tenderness (L), muscle spasm, paraspinal tenderness. Absent: CVA tenderness (R), vertebral tenderness - Neurological Exam Neurological exam: Present: alert, oriented X3, CN II-XII intact, normal gait, reflexes normal - Psychiatric Psychiatric exam: Present: normal affect, normal mood - Skin Skin exam: Present: warm, dry, intact, normal color. Absent: rash ED Course Vital Signs 09/23/21 09/23/21 16:11 18:21 Temperature 97.9 F Pulse Rate 86 74 Respiratory 17 18 Rate Blood Pressure 134/84 Blood Pressure 123/87 [Left] O2 Sat by Pulse 100 99 Oximetry ED Medical Decision Making - Lab Data Result diagrams: 09/23/21 17:05 09/23/21 17:05 - Radiology Data Radiology results: report reviewed, image reviewed [facility] [address] [place] [address] Cat Scan Report Signed Patient: NOMRA BAIN MR#: [id number] : 1990 Acct:[id number] Age/Sex: 31 / F ADM Date: 09/23/21 Loc: ED Attending Dr: Ordering Physician: JOSE ROBERTO YOUSIF Date of Service: 09/23/21 Procedure(s): CT abdomen pelvis w con Accession Number(s): [id number] cc: JOSE ROBERTO YOUSIF CT abdomen pelvis w con INDICATION / CLINICAL INFORMATION: LLQ pain. TECHNIQUE: Axial CT imaging of abdomen and pelvis was obtained with 100 mL Omnipaque 300 IV contrast. Coronal and sagittal reformatted imaging obtained and reviewed. All CT scans at this location are performed using CT dose reduction for ALARA by means of automated exposure control. COMPARISON: None available. FINDINGS: CT abdomen with IV contrast demonstrates normal appearance of the liver, spleen, pancreas, kidneys, and adrenal glands. Small angiomyolipoma is present in the right kidney, measuring 1.5 cm. Abdominal aorta is unremarkable. Gallbladder is unremarkable. No biliary dilatation. CT pelvis with contrast is unremarkable. No pelvic mass, free fluid, or focal inflammatory change noted. Normal appendix is present. GI tract is normal in appearance. See no etiology to account for the patient's complaint of left lower quadrant pain. No diverticulosis or diverticulitis is present. Visualized lung bases are clear. No acute osseous abnormality noted. IMPRESSION: 1. No acute finding within the abdomen or pelvis. Specifically no finding is identified to account for the patient's complaint of left lower quadrant pain. 2. 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 Signer Name: Alissa Obrien MD Signed: 09/23/2021 8:12 PM Workstation Name: [id number] Transcribed By: Dictated By: Alissa Obrien MD Electronically Authenticated By: Alissa Obrien MD Signed Date/Time: 09/23/212011 DD/ 04 TD/TT: - Medical Decision Making This is a 31-year-old -[place] female with no past medical history presents to the ED with complaint of acute onset persistent left flank pain that radiates to the left lower quadrant area with nausea for the last 8 hours. Patient states that the pain has been constant and persistent, worse with any movement. Patient states that the pain is sharp and constant and persistent. In the ED, patient is alert and oriented x3 and is not in any distress. Patient was treated for pain in the ED and also given antiemetics. All lab test results were reviewed and showed significant urinary tract infection. Abdomen pelvis CT scan with IV contrast showed no acute abnormalities except an incid ental finding of a 1.5 cm benign right renal angiomyolipoma. Patient was treated also for acute urinary tract infection with Rocephin 1 g IV x1. On reevaluation, patient's pain is well controlled medication. Patient was discharged home on pain medications and antibiotics and advised to follow-up with her primary care physician in 5 to 7 days for reevaluation. Patient was advised to return to the ED immediately if symptoms get worse. - Differential Diagnosis UTI; kidney stone; ovarian cyst; ; diverticulitis; colitis; Critical care attestation.: If time is entered above; I have spent that time in minutes in the direct care of this critically ill patient, excluding procedure time. ED Disposition Clinical Impression: Acute abdominal pain in left flank, Acute urinary tract infection Disposition: HOME / SELF CARE / HOMELESS Is pt being admited?: No Does the pt Need Aspirin: No Condition: Stable Instructions: Abdominal Pain (ED), Abdominal Pain, Adult, [id number], Urinary Tract Infection, Adult, [id number] Additional Instructions: All lab test results were reviewed and are all nonactionable except urinalysis that showed significant tract infection. Abdomen pelvis CT scan with contrast showed no acute abnormalities. Therefore take medication with food, drink plenty of fluids and follow-up with your primary care physician in 7 to 10 days for reevaluation. Return to the ED immediately if symptoms get worse. Prescriptions: Sulfamethoxazole/Trimethoprim [Bactrim DS TAB] 1 each PO BID #20 tab diphenhydrAMINE [Benadryl CAP] 25 mg PO Q6HR PRN #30 capsule PRN Reason: Allergy Symptoms methylPREDNISolone [Medrol 4MG DOSEPAK (21 tabs)] 4 mg PO DAILY #21 tab Ibuprofen [Motrin] 800 mg PO Q8HR PRN #30 tablet PRN Reason: Pain , Severe (7-10) Ondansetron [Zofran Odt] 4 mg PO Q8HR PRN #20 tab.rapdis PRN Reason: Nausea Referrals: [facility] [Provider Group] - 7-10 days Forms: Work/School Release Form(ED) Time of Disposition: 21:13 Print Language: KAZAKH
== END 2021-09-23 21:51 | disposition home or self-care (01) ==
LOC: ED 15:18
DX: R10.9 Unspecified abdominal pain (principal); N39.0 Urinary tract infection, site not specified; I10 Essential (primary) hypertension
CPT/HCPCS: 36415; 74177; 80053; 81001; 81025; 83690; 85025; 96365; 96375; 99284; J0696; J2270; J2405; Q9967